=== PATIENT | male | born 1990 | race Caucasian/White ===

== ENCOUNTER 2017-04-29 17:54 | Emergency (ER) | payer SELFPAY ==
[2017-04-29] MEDS ORDERED: DIPHTH,PERTUSS(ACELL),TET VAC 0.5 ML VIAL IM ONE ×2 (18:12→18:13)
--- NOTE | 2017-04-29 18:46 | ERNOTE ---
Medical Problem HPI - Narrative Date of Service: 04/29/17 - General Chief Complaint: Laceration Time Seen by Provider: 04/29/17 18:13 Source: patient Exam Limitations: no limitations - Immun/Allergies/Home Medications Immunizations: IMMUNIZATION HX Immunizations Up to Date Yes History of Influenza Vaccine No Hx Pneumococcal Vaccination No Allergies/Adverse Reactions: Allergies No Known Allergies Allergy (Verified 05/31/15 19:37) Home Medications: HOME MEDICATIONS Albuterol Sulfate [Albuterol Sulfate 2.5 MG/0.5ML] 1 vial IH Q4H PRN 04/21/15 [ Last Taken Unknown] Albuterol Sulfate [Ventolin Hfa] 18 gm IH Q4H PRN #1 inhaler 04/21/15 [Last Taken Unknown] - History of Present History Narrative: Patient lacerated his left 5th digit just CHANG[employer]. Cut it on a can lid. Left handed. States the tip of his finger is tingling. Cut on radial aspect of finger. No other injuries. Pain at the laceration site. No other traumatic injury. Has not seen anyone else for this. Timing: constant Severity: mild Modifying Factors - (Improves): Present: rest Modifying Factors - (Worsens): Present: movement Review of Systems - Review of Systems Constitutional: Absent: fever - Patient's Past Medical History Patient History - Medical: Anxiety Patient History - Cardiac/Respiratory: Asthma Patient History - Cancer: No Hx of Cancer Patient History - Surgical Procedures: No surgical history Patient History - Other: None - Social History Living Situations: parents Abuse History: No History of abuse Psych History: Hx of Anxiety Smoking Status: Current every day smoker Have you smoked in the past 12 months: Yes Do you dip or chew tobacco: Yes Alcohol Use: none Drug Use: none - Immunizations Immunizations Up to Date: Yes Hx Pneumococcal Vaccination: No History of Influenza Vaccine: No Physical Exam - Physical Exam General Appearance: Present: alert, no apparent distress Extremity Exam: Present: other - 1.5 cm laceration radial aspect left 5 th digit. No nailbed injury. Pain limits exam but no loss of extension strength, FDS and FDP tendon strength appears full given limitations. No joint involvement. Neurological Exam: Present: other - subjective decreased LT sensation to affected digit distal to the wound diffusely. He can move the digit but pain limits exam. Skin Exam: Present: normal color, warm/dry, other - 1.5cm laceration, no FB. ED Progress - Vital Signs Patient's Vital Signs:: I have reviewed the patient's vital signs. Vital Signs: Vital Signs 04/29/17 18:00 Temperature 36.5 C Pulse Rate 94 Respiratory 16 Rate Blood Pressure 118/89 O2 Sat by Pulse 97 Oximetry - Progress/Reassessment Chief Complaint: Laceration Progress Note-Subjective: 04/29/17 18:41 1.5cm lac. I do not see any tendon injury, taken through a full ROM. Clinically no tendon deficit given pain limitation. dT updated. No joint space involvement. 04/29/17 18:45 No indication for imaging. irrigated well. Prepped normal fashion. 1.5 ml 1% lido utilized. Procedures Left Distal 5th Digit Anesthesia: 1% Lidocaine I & D Prep: sterile drapes applied Length of Repair/Wound (cm): 1.5 Wound's Depth/Shape: into subcutaneous Wound Explored: clean, to base, no foreign body Wound Intervention: irrigated w/saline Distal NVT: no tendon injury Suture Size/Type: 4-0, nylon Number of Sutures: 2 Layer Closure: Simple Wound Dressing: sterile dressing applied, splint applied Complications: Pt jelani procedure well Departure Clinical Impression: Finger laceration - Departure Disposition: Home self-care Condition: Stable Instructions: Sutured Wound Care, [id number] Additional Instructions: Spint for comfort. Surtures out in 10 days. You need to re-check with your physician in 3 days to re-check the wound and your tendon function. Return for fever, increased pain, signs of infection or if your condition worsens or changes in any way.
[2017-04-29 18:53] VITALS: BP 116/78
== END 2017-04-29 18:52 | disposition home or self-care (01) ==
LOC: ER 17:54
PROC: 0JQK0ZZ Repair Left Hand Subcutaneous Tissue and Fascia, Open Approach (ICD-10-PCS; principal; 2017-04-29)
PROC: 2W3KX1Z Immobilization of Left Finger using Splint (ICD-10-PCS; 2017-04-29)
DX: S61.217A Laceration without foreign body of left little finger without damage to nail, initial encounter (principal); F17.200 Nicotine dependence, unspecified, uncomplicated; W26.8XXA Contact with other sharp object(s), not elsewhere classified, initial encounter; J45.909 Unspecified asthma, uncomplicated